=== PATIENT | male | born 1950 | race Caucasian/White ===

== ENCOUNTER 2019-12-23 10:51 | Inpatient (IN) | payer MEDICARE, BC ==
[2019-12-23] MEDS ORDERED: Sodium Chloride 0.9% 10 ML Syringe FLUSH PRN (11:05)
--- NOTE | 2019-12-23 11:42 | EDM.PDOC ---
ED HPI GENERAL MEDICAL PROBLEM - General Chief Complaint: Gastrointestinal Problem Stated Complaint: GI BLEED SENT BY DR SANTANA Time Seen by Provider: 12/23/19 11:05 Source of Information: Reports: Patient History Limitations: Reports: No Limitations - History of Present Illness INITIAL COMMENTS - FREE TEXT/NARRATIVE: Patient is a 69 year old male who presents with c/o bright red bleeding per rectum. The states that the symptoms began last night and he estimates that he has had between 8-10 bowel movements since the start. He states that initially there was some fecal material mixed with the blood but now he is having bowel movements of straight red blood. Describes the amount is moderate. He denies any dizziness upon standing or at other times. States "I do not think I've lost enough blood for that ". He does have a history of lower GI bleed back in 2015. He was admitted to the hospital at that time for a few days until the bleeding stopped. He states that a colonoscopy was not done because he had just had one done approximately 2 years prior to that. He was told that it was likely a diverticular bleed. At that time he was taking Plavix, however he has no longer on that medication. He does take a baby aspirin a day. States he occasionally takes Aleve for his arthritis, however not on a regular basis. His last colonoscopy was in 2013. He denies any abdominal pain, fever, chills, nausea, or vomiting. - Related Data Allergies Allergy/AdvReac Type Severity Reaction Status Date / Time pravastatin Allergy Hives Verified 12/23/19 11:04 Home Meds: Home Meds Allopurinol [Zyloprim] 300 mg PO DAILY 09/26/15 [History] Fexofenadine [Marleni] 180 mg PO DAILY PRN 09/26/15 [History] Lisinopril/Hydrochlorothiazide [Lisinopril-Hctz 20-25 mg Tab] 1 tab PO DAILY 09/26/15 [History] Naproxen Sodium [Aleve] 440 mg PO BID PRN 09/26/15 [History] Omeprazole [Prilosec] 20 mg PO DAILY 09/26/15 [History] Verepamil 240 mg PO DAILY 09/26/15 [History] Aspirin [Halfprin] 81 mg PO DAILY #30 09/28/15 [Rx] Labetalol [Normodyne] 100 mg PO BID 12/23/19 [History] Rosuvastatin Calcium [Crestor] 40 mg PO DAILY 12/23/19 [History] Past Medical History HEENT History: Reports: Impaired Vision Cardiovascular History: Reports: Angina, CAD, High Cholesterol, Hypertension, Stents Respiratory History: Reports: SOB, Other (See Below) Other Respiratory History: seasonal allergies Gastrointestinal History: Reports: Diverticulosis, GERD Genitourinary History: Reports: Prostate Disorder Musculoskeletal History: Reports: Arthritis, Back Pain, Chronic, Other (See Below) Other Musculoskeletal History: burstitis in left shoulder Neurological History: Reports: Migraines Oncologic (Cancer) History: Reports: Other (See Below) Other Oncologic History: right eye Dermatologic History: Reports: Other (See Below) Other Dermatologic History: chorid melanoma right eye - Past Surgical History Cardiovascular Surgical History: Reports: Coronary Artery Stent GI Surgical History: Reports: Hernia, Inguinal, Other (See Below) Other GI Surgeries/Procedures: GI bleed Dermatological Surgical History: Reports: Other (See Below) Social & Family History - Family History Family Medical History: Noncontributory - Tobacco Use Smoking Status *Q: Never Smoker Second Hand Smoke Exposure: No - Caffeine Use Caffeine Use: Reports: Coffee - Recreational Drug Use Recreational Drug Use: No ED ROS GENERAL - Review of Systems Review Of Systems: See Below Constitutional: Reports: No Symptoms. Denies: Fever, Chills, Weakness, Fatigue HEENT: Reports: No Symptoms Respiratory: Reports: No Symptoms. Denies: Shortness of Breath, Cough Cardiovascular: Reports: No Symptoms. Denies: Chest Pain, Lightheadedness Endocrine: Reports: No Symptoms GI/Abdominal: Reports: Bloody Stool. Denies: Abdominal Pain, Black Stool, Melena, Nausea, Vomiting : Reports: No Symptoms Musculoskeletal: Reports: No Symptoms Skin: Reports: No Symptoms Neurological: Reports: No Symptoms. Denies: Dizziness, Headache Psychiatric: Reports: No Symptoms Hematologic/Lymphatic: Reports: No Symptoms Immunologic: Reports: No Symptoms ED EXAM, GI/ABD - Physical Exam Exam: See Below Exam Limited By: No Limitations General Appearance: Alert, WD/WN, No Apparent Distress Respiratory/Chest: No Respiratory Distress, Lungs Clear, Normal Breath Sounds, No Accessory Muscle Use, Chest Non-Tender Cardiovascular: Normal Peripheral Pulses, Regular Rate, Rhythm, No Edema, No Gallop, No JVD, No Murmur, No Rub GI/Abdominal Exam: Normal Bowel Sounds, Soft, Non-Tender, No Organomegaly, No Distention, No Abnormal Bruit, No Mass, Pelvis Stable Rectal (Males) Exam: Normal Exam, Normal Rectal Tone, Bloody Stool (Bright red), Heme + Stool Neurological: Alert, Oriented, CN II-XII Intact, Normal Cognition, Normal Gait, Normal Reflexes, No Motor/Sensory Deficits Psychiatric: Normal Affect, Normal Mood Skin Exam: Warm, Dry, Intact, Normal Color, No Rash Course - Vital Signs Last Recorded V/S: Last Vital Signs Temp 97.5 F 12/23/19 20:12 Pulse 69 12/23/19 21:29 Resp 18 12/23/19 14:53 BP 131/49 L 12/23/19 21:29 Pulse Ox 93 L 12/23/19 20:12 Orthostatic Blood Pressure [ 130/106 Standing] Orthostatic Blood Pressure [ 133/61 Sitting] Orthostatic Blood Pressure [ 136/65 Supine] - Orders/Labs/Meds Orders: Active Orders 24 hr Category Date Time Status Orthostatic Vital Signs [RC] ASDIRECTED Care 12/23/19 11:06 Active Lactated Ringers [Ringers, Lactated] 1,000 ml Med 12/23/19 11:45 Active IV ASDIRECTED Sodium Chloride 0.9% [Saline Flush] Med 12/23/19 11:05 Active 10 ml FLUSH ASDIRECTED PRN Peripheral IV Insertion Adult [OM.PC] Stat Oth 12/23/19 11:05 Ordered Medication Orders Allopurinol (Zyloprim) 300 mg PO DAILY [facility] Lactated Ringer's (Ringers, Lactated) 1,000 mls @ 150 mls/hr IV ASDIRECTED EDISON Last Admin: 12/23/19 19:08 Dose: 100 mls/hr Documented by: Infusion: 12/23/19 18:28 Dose: 150 mls/hr Documented by: Admin: 12/23/19 11:47 Dose: 150 mls/hr Documented by: ABRAN Labetalol HCl (Normodyne) 100 mg PO BID [facility] Last Admin: 12/23/19 21:29 Dose: 100 mg Documented by: RAJWINDER Pantoprazole Sodium (Protonix) 40 mg PO DAILY [facility] Sodium Chloride (Saline Flush) 10 ml FLUSH ASDIRECTED PRN PRN Reason: Keep Vein Open Last Admin: 12/23/19 11:27 Dose: 10 ml Documented by: ABRAN Verapamil HCl (Verelan) 240 mg PO DAILY [facility] Labs: Laboratory Tests 12/23/19 12/23/19 12/23/19 Range/Units 11:33 11:33 11:33 WBC 9.16 H (4.23-9.07) K/mm3 RBC 4.40 L (4.63-6.08) M/mm3 Hgb 13.3 L D (13.7-17.5) gm/dl Hct 41.2 (40.1-51.0) % MCV 93.6 H (79.0-92.2) fl MCH 30.2 (25.7-32.2) pg MCHC 32.3 (32.2-35.5) g/dl RDW Std Deviation 48.5 H (35.1-43.9) fL Plt Count 215 (163-337) K/mm3 MPV 10.6 (9.4-12.3) fl Neut % (Auto) 69.4 H (34.0-67.9) % Lymph % (Auto) 18.7 L (21.8-53.1) % Florence % (Auto) 7.0 (5.3-12.2) % Eos % (Auto) 4.4 (0.8-7.0) Baso % (Auto) 0.4 (0.1-1.2) % Neut # (Auto) 6.36 H (1.78-5.38) K/mm3 Lymph # (Auto) 1.71 (1.32-3.57) K/mm3 Florence # (Auto) 0.64 (0.30-0.82) K/mm3 Eos # (Auto) 0.40 (0.04-0.54) K/mm3 Baso # (Auto) 0.04 (0.01-0.08) K/mm3 Manual Slide Review Normal smear Sodium 142 (136-145) mEq/L Potassium 4.6 (3.5-5.1) mEq/L Chloride 106 (98-107) mEq/L Carbon Dioxide 24 (21-32) mEq/L Anion Gap 16.6 H (5-15) BUN 36 H (7-18) mg/dL Creatinine 1.6 H (0.7-1.3) mg/dL Est Cr Clr Drug Dosing 45.10 mL/min Estimated GFR (MDRD) 43 (>60) mL/min BUN/Creatinine Ratio 22.5 H (14-18) Glucose 132 H (83-115) mg/dL Calcium 10.7 H D (8.5-10.1) mg/dL Magnesium 1.5 L (1.8-2.4) mg/dl Total Bilirubin 0.5 (0.2-1.0) mg/dL AST 26 (15-37) U/L ALT 33 (16-63) U/L Alkaline Phosphatase 86 (46-116) U/L C-Reactive Protein 0.4 (<1.0) mg/dL Total Protein 7.5 (6.4-8.2) g/dl Albumin 4.1 (3.4-5.0) g/dl Globulin 3.4 gm/dL Albumin/Globulin Ratio 1.2 (1-2) Lipase 213 (73-393) U/L Urine Color (Yellow) Urine Appearance (Clear) Urine pH (5.0-8.0) Ur Specific Alston (1.005-1.030) Urine Protein (Negative) Urine Glucose (UA) (Negative) Urine Ketones (Negative) Urine Occult Blood (Negative) Urine Nitrite (Negative) Urine Bilirubin (Negative) Urine Urobilinogen (0.2-1.0) Ur Leukocyte Esterase (Negative) U Hyaline Cast (Auto) (0-5) /lpf Urine RBC (0-5) /hpf Urine WBC (0-5) /hpf Ur Epithelial Cells (0-5) /hpf Urine Bacteria (FEW) /hpf Urine Mucus (FEW) /hpf SARS-CoV-2 RNA (RT-PCR) (NEGATIVE) 12/23/19 12/23/19 Range/Units 12:31 12:55 WBC (4.23-9.07) K/mm3 RBC (4.63-6.08) M/mm3 Hgb (13.7-17.5) gm/dl Hct (40.1-51.0) % MCV (79.0-92.2) fl MCH (25.7-32.2) pg MCHC (32.2-35.5) g/dl RDW Std Deviation (35.1-43.9) fL Plt Count (163-337) K/mm3 MPV (9.4-12.3) fl Neut % (Auto) (34.0-67.9) % Lymph % (Auto) (21.8-53.1) % Florence % (Auto) (5.3-12.2) % Eos % (Auto) (0.8-7.0) Baso % (Auto) (0.1-1.2) % Neut # (Auto) (1.78-5.38) K/mm3 Lymph # (Auto) (1.32-3.57) K/mm3 [place] # (Auto) (0.30-0.82) K/mm3 Eos # (Auto) (0.04-0.54) K/mm3 Baso # (Auto) (0.01-0.08) K/mm3 Manual Slide Review Sodium (136-145) mEq/L Potassium (3.5-5.1) mEq/L Chloride (98-107) mEq/L Carbon Dioxide (21-32) mEq/L Anion Gap (5-15) BUN (7-18) mg/dL Creatinine (0.7-1.3) mg/dL Est Cr Clr Drug Dosing mL/min Estimated GFR (MDRD) (>60) mL/min BUN/Creatinine Ratio (14-18) Glucose (83-115) mg/dL Calcium (8.5-10.1) mg/dL Magnesium (1.8-2.4) mg/dl Total Bilirubin (0.2-1.0) mg/dL AST (15-37) U/L ALT (16-63) U/L Alkaline Phosphatase (46-116) U/L C-Reactive Protein (<1.0) mg/dL Total Protein (6.4-8.2) g/dl Albumin (3.4-5.0) g/dl Globulin gm/dL Albumin/Globulin Ratio (1-2) Lipase (73-393) U/L Urine Color Dark yellow (Yellow) Urine Appearance Clear (Clear) Urine pH 5.5 (5.0-8.0) Ur Specific Alston > or = 1.030 (1.005-1.030) Urine Protein 2+ H (Negative) Urine Glucose (UA) Negative (Negative) Urine Ketones Trace H (Negative) Urine Occult Blood Negative (Negative) Urine Nitrite Negative (Negative) Urine Bilirubin 1+ H (Negative) Urine Urobilinogen 0.2 (0.2-1.0) Ur Leukocyte Esterase Negative (Negative) U Hyaline Cast (Auto) 5-10 H (0-5) /lpf Urine RBC Not seen (0-5) /hpf Urine WBC 0-5 (0-5) /hpf Ur Epithelial Cells Not seen (0-5) /hpf Urine Bacteria Few (FEW) /hpf Urine Mucus Few (FEW) /hpf SARS-CoV-2 RNA (RT-PCR) Negative (NEGATIVE) Meds: Medications Generic Name Dose Route Start Last Admin Trade Name Freq PRN Reason Stop Dose Admin Allopurinol 300 mg 12/24/19 09:00 Zyloprim PO DAILY [facility] Lactated Ringer's 1,000 mls @ 150 mls/hr 12/23/19 11:45 12/23/19 19:08 Ringers, Lactated IV 100 mls/hr ASDIRECTED EDISON Administration Labetalol HCl 100 mg 12/23/19 21:00 12/23/19 21:29 Normodyne PO 100 mg BID [facility] Administration Pantoprazole Sodium 40 mg 12/24/19 09:00 Protonix PO DAILY [facility] Sodium Chloride 10 ml 12/23/19 11:05 12/23/19 11:27 Saline Flush FLUSH 10 ml ASDIRECTED PRN Administration Keep Vein Open Verapamil HCl 240 mg 12/24/19 09:00 Verelan PO DAILY [facility] Discontinued Medications Generic Name Dose Route Start Last Admin Trade Name Freq PRN Reason Stop Dose Admin Magnesium Sulfate 2 gm/ Premix 50 mls @ 25 mls/hr 12/23/19 12:55 12/23/19 13:09 IV 12/23/19 14:54 25 mls/hr ONETIME ONE Administration Polyethylene Glycol/Electrolytes 4,000 ml 12/23/19 18:26 12/23/19 19:09 Golytely PO 12/23/19 18:27 4,000 ml ONETIME ONE Administration - Re-Assessments/Exams Free Text/Narrative Re-Assessment/Exam: 12/23/19 12:55 Hematology was significant for WBC minimally elevated at 9.16, hemoglobin slightly low at 13.3, anion gap slightly elevated at 16.6, BUN 36, creatinine 1.6, magnesium low at 1.5. Spoke with hospitalist, Derrick PANTOJA. Patient will be admitted for lower GI bleed. Will decrease the rate of LR to 100 mils per hour and start 2 g of IV magnesium. Departure - Departure Time of Disposition: 12:55 Disposition: Admitted As Inpatient 64 Condition: Good Clinical Impression: Lower GI bleeding - Discharge Information Sepsis Event Note (ED) - Evaluation Sepsis Screening Result: No Definite Risk - Focused Exam Vital Signs: Vital Signs Temp Pulse Resp BP Pulse Ox 12/23/19 12:43 64 18 103/62 94 L 12/23/19 11:49 73 20 106/58 L 96 12/23/19 11:00 96.8 F L 81 18 111/61 95 - My Orders Last 24 Hours: My Active Orders 12/23/19 11:05 Sodium Chloride 0.9% [Saline Flush] 10 ml FLUSH ASDIRECTED PRN Peripheral IV Insertion Adult [OM.PC] Stat 12/23/19 11:06 Orthostatic Vital Signs [RC] ASDIRECTED 12/23/19 11:45 Lactated Ringers [Ringers, Lactated] 1,000 ml IV ASDIRECTED - Assessment/Plan Last 24 Hours: My Active Orders 12/23/19 11:05 Sodium Chloride 0.9% [Saline Flush] 10 ml FLUSH ASDIRECTED PRN Peripheral IV Insertion Adult [OM.PC] Stat 12/23/19 11:06 Orthostatic Vital Signs [RC] ASDIRECTED 12/23/19 11:45 Lactated Ringers [Ringers, Lactated] 1,000 ml IV ASDIRECTED
[2019-12-23] MEDS: Lactated Ringers 1,000 ML IV SCH ×2 (11:47→19:08)
[2019-12-23] MEDS ORDERED: Magnesium Sulfate/Water 2 GM in Premix Bag 1 BAG IV ONE (12:55)
--- NOTE | 2019-12-23 15:04 | PCM.HP.2 ---
H&P History of Present Illness - General Date of Service: 12/23/19 Admit Problem/Dx: Admission Diagnosis/Problem Admission Diagnosis/Problem GI bleed not requiring more than 4 units of blood in 24 hours, ICU, or surgery Source of Information: Patient, Old Records, Provider, RN, RN Notes Reviewed History Limitations: Reports: No Limitations - History of Present Illness Initial Comments - Free Text/Narative: Gagandeep Brewer is a 69-year-old male who presents to ED on 12/23/2019 after being sent here by his primary care provider, Dr. Ansari, for a GI bleed. Reports has had bright red blood per rectum which started yesterday evening. Reports has had 8-10 bowel movements since the start. He had several bright red bowel movements in the ED as well. Initially states there was formed stool with red streaks but this eventually became gross blood. Reports prior GI bleed in 2015 which resolved without intervention. He states at that time he had had a colonoscopy several weeks prior and nothing was found. He does have a history of diverticulosis and they believe that was the cause of the bleed. He has had no issues since this episode. At that time he was taking Plavix, however this has been discontinued. He takes aspirin daily, 81 mg, and an occasional NSAID. Last colonoscopy was in 2013. Denies any abdominal pain or current infectious symptoms. In the ED temp was 96.8. Pulse 64. Respirations 18. Blood pressure was 103/62. Pulse ox was 94. CBC is grossly unremarkable with a hemoglobin of 13.2 and platelets of 215. Magnesium is low at 1.5 and he is given 2 g in the ED. Creatinine is slightly elevated at 1.6 with a GFR 43. Anion gap is slightly high at 16.6. Lipase is 213. Otherwise electrolytes look good. He started on lactated Ringer's at 150 mils an hour. And this was decreased down to 100 mils per hour before he went to the floor. Stool was heme positive in the ED. COVID-19 screen was negative. He carries a history of angina, CAD, HLD, hypertension, prior stent placement, diverticulosis, GERD, prostate disorder, chronic back pain, arthritis, migraines, choroid melanoma of the right eye, prior GI bleeds. He was never smoker. His PCP is Dr. Ansari. He subsequently admitted to the medical floor for management of his GI bleed. - Related Data Allergies/Adverse Reactions: Allergies Allergy/AdvReac Type Severity Reaction Status Date / Time pravastatin Allergy Hives Verified 12/23/19 11:04 Home Medications: Home Meds Allopurinol [Zyloprim] 300 mg PO DAILY 09/26/15 [History] Fexofenadine [Marleni] 180 mg PO DAILY PRN 09/26/15 [History] Lisinopril/Hydrochlorothiazide [Lisinopril-Hctz 20-25 mg Tab] 1 tab PO DAILY 09/07 [History] Naproxen Sodium [Aleve] 440 mg PO BID 09/26/15 [History] Omeprazole [Prilosec] 20 mg PO DAILY 09/26/15 [History] Verepamil 240 mg PO DAILY 09/26/15 [History] Aspirin [Halfprin] 81 mg PO DAILY #30 09/28/15 [Rx] Labetalol [Normodyne] 100 mg PO BID 12/23/19 [History] Rosuvastatin Calcium [Crestor] 40 mg PO DAILY 12/23/19 [History] Past Medical History HEENT History: Reports: Impaired Vision Cardiovascular History: Reports: Angina, CAD, High Cholesterol, Hypertension, Stents Respiratory History: Reports: SOB, Other (See Below) Other Respiratory History: seasonal allergies Gastrointestinal History: Reports: Diverticulosis, GERD Genitourinary History: Reports: Prostate Disorder Musculoskeletal History: Reports: Arthritis, Back Pain, Chronic, Other (See Below) Other Musculoskeletal History: burstitis in left shoulder Neurological History: Reports: Migraines Oncologic (Cancer) History: Reports: Other (See Below) Other Oncologic History: right eye Dermatologic History: Reports: Other (See Below) Other Dermatologic History: chorid melanoma right eye - Past Surgical History Cardiovascular Surgical History: Reports: Coronary Artery Stent GI Surgical History: Reports: Hernia, Inguinal, Other (See Below) Other GI Surgeries/Procedures: GI bleed Dermatological Surgical History: Reports: Other (See Below) Social & Family History - Family History Family Medical History: Noncontributory - Tobacco Use Smoking Status *Q: Never Smoker Second Hand Smoke Exposure: No - Caffeine Use Caffeine Use: Reports: Coffee - Recreational Drug Use Recreational Drug Use: No H&P Review of Systems - Review of Systems: Review Of Systems: See Below General: Reports: No Symptoms. Denies: Fever, Chills, Malaise, Weakness, Fatigue HEENT: Reports: No Symptoms. Denies: Headaches, Sore Throat Pulmonary: Reports: No Symptoms. Denies: Shortness of Breath, Wheezing, Pleuritic Chest Pain, Cough, Sputum Cardiovascular: Reports: No Symptoms. Denies: Chest Pain, Palpitations, Dyspnea on Exertion, Edema Gastrointestinal: Reports: No Symptoms. Denies: Abdominal Pain, Constipation, Diarrhea, Nausea, Vomiting Genitourinary: Reports: No Symptoms. Denies: Pain Musculoskeletal: Reports: No Symptoms Skin: Reports: No Symptoms. Denies: Cyanosis Psychiatric: Reports: No Symptoms. Denies: Confusion Neurological: Reports: No Symptoms. Denies: Numbness, Tingling, Difficulty Walking, Weakness, Gait Disturbance Hematologic/Lymphatic: Reports: No Symptoms Immunologic: Reports: No Symptoms Exam - Exam Exam: See Below - Vital Signs Vital Signs: Last Vital Signs Temp 96.8 F L 12/23/19 11:00 Pulse 64 12/23/19 12:43 Resp 18 12/23/19 12:43 BP 103/62 12/23/19 12:43 Pulse Ox 94 L 12/23/19 12:43 Orthostatic Blood Pressure [ 130/106 Standing] Orthostatic Blood Pressure [ 133/61 Sitting] Orthostatic Blood Pressure [ 136/65 Supine] Weight: 230 lb - Exam Quality Assessment: DVT Prophylaxis. No: Supplemental Oxygen General: Alert, Oriented, Cooperative. No: Mild Distress HEENT: Conjunctiva Clear, EACs Clear, Hearing Intact, Mucosa Moist & [place], Nares Patent, Posterior Pharynx Clear Neck: Supple, Trachea Midline Lungs: Clear to Auscultation, Normal Respiratory Effort Cardiovascular: Regular Rate, Regular Rhythm GI/Abdominal Exam: Normal Bowel Sounds, Soft, Non-Tender, No Distention (Male) Exam: Deferred Rectal (Males) Exam: Deferred Back Exam: Normal Inspection, Full Range of Motion Extremities: Normal Inspection, Normal Range of Motion, Non-Tender, No Pedal Edema, Normal Capillary Refill Peripheral Pulses: 2+: Radial (L), Radial (R), Dorsalis Pedis (L), Dorsalis Pedis (R) Skin: Warm, Dry, Intact Neurological: Cranial Nerves Intact (Grossly ) Neuro Extensive - Mental Status: Alert, Oriented x3, Normal Mood/Affect, Normal Cognition - Patient Data Lab Results Last 24 hrs: Laboratory Results - last 24 hr 12/23/19 12/23/19 12/23/19 Range/Units 11:33 11:33 11:33 WBC 9.16 H (4.23-9.07) K/mm3 RBC 4.40 L (4.63-6.08) M/mm3 Hgb 13.3 L D (13.7-17.5) gm/dl Hct 41.2 (40.1-51.0) % MCV 93.6 H (79.0-92.2) fl MCH 30.2 (25.7-32.2) pg MCHC 32.3 (32.2-35.5) g/dl RDW Std Deviation 48.5 H (35.1-43.9) fL Plt Count 215 (163-337) K/mm3 MPV 10.6 (9.4-12.3) fl Neut % (Auto) 69.4 H (34.0-67.9) % Lymph % (Auto) 18.7 L (21.8-53.1) % [place] % (Auto) 7.0 (5.3-12.2) % Eos % (Auto) 4.4 (0.8-7.0) Baso % (Auto) 0.4 (0.1-1.2) % Neut # (Auto) 6.36 H (1.78-5.38) K/mm3 Lymph # (Auto) 1.71 (1.32-3.57) K/mm3 [place] # (Auto) 0.64 (0.30-0.82) K/mm3 Eos # (Auto) 0.40 (0.04-0.54) K/mm3 Baso # (Auto) 0.04 (0.01-0.08) K/mm3 Manual Slide Review Normal smear Sodium 142 (136-145) mEq/L Potassium 4.6 (3.5-5.1) mEq/L Chloride 106 (98-107) mEq/L Carbon Dioxide 24 (21-32) mEq/L Anion Gap 16.6 H (5-15) BUN 36 H (7-18) mg/dL Creatinine 1.6 H (0.7-1.3) mg/dL Est Cr Clr Drug Dosing 45.10 mL/min Estimated GFR (MDRD) 43 (>60) mL/min BUN/Creatinine Ratio 22.5 H (14-18) Glucose 132 H (83-115) mg/dL Calcium 10.7 H D (8.5-10.1) mg/dL Magnesium 1.5 L (1.8-2.4) mg/dl Total Bilirubin 0.5 (0.2-1.0) mg/dL AST 26 (15-37) U/L ALT 33 (16-63) U/L Alkaline Phosphatase 86 (46-116) U/L C-Reactive Protein 0.4 (<1.0) mg/dL Total Protein 7.5 (6.4-8.2) g/dl Albumin 4.1 (3.4-5.0) g/dl Globulin 3.4 gm/dL Albumin/Globulin Ratio 1.2 (1-2) Lipase 213 (73-393) U/L Urine Color (Yellow) Urine Appearance (Clear) Urine pH (5.0-8.0) Ur Specific [place] (1.005-1.030) Urine Protein (Negative) Urine Glucose (UA) (Negative) Urine Ketones (Negative) Urine Occult Blood (Negative) Urine Nitrite (Negative) Urine Bilirubin (Negative) Urine Urobilinogen (0.2-1.0) Ur Leukocyte Esterase (Negative) U Hyaline Cast (Auto) (0-5) /lpf Urine RBC (0-5) /hpf Urine WBC (0-5) /hpf Ur Epithelial Cells (0-5) /hpf Urine Bacteria (FEW) /hpf Urine Mucus (FEW) /hpf SARS-CoV-2 RNA (RT-PCR) (NEGATIVE) 12/23/19 12/23/19 Range/Units 12:31 12:55 WBC (4.23-9.07) K/mm3 RBC (4.63-6.08) M/mm3 Hgb (13.7-17.5) gm/dl Hct (40.1-51.0) % MCV (79.0-92.2) fl MCH (25.7-32.2) pg MCHC (32.2-35.5) g/dl RDW Std Deviation (35.1-43.9) fL Plt Count (163-337) K/mm3 MPV (9.4-12.3) fl Neut % (Auto) (34.0-67.9) % Lymph % (Auto) (21.8-53.1) % [place] % (Auto) (5.3-12.2) % Eos % (Auto) (0.8-7.0) Baso % (Auto) (0.1-1.2) % Neut # (Auto) (1.78-5.38) K/mm3 Lymph # (Auto) (1.32-3.57) K/mm3 [place] # (Auto) (0.30-0.82) K/mm3 Eos # (Auto) (0.04-0.54) K/mm3 Baso # (Auto) (0.01-0.08) K/mm3 Manual Slide Review Sodium (136-145) mEq/L Potassium (3.5-5.1) mEq/L Chloride (98-107) mEq/L Carbon Dioxide (21-32) mEq/L Anion Gap (5-15) BUN (7-18) mg/dL Creatinine (0.7-1.3) mg/dL Est Cr Clr Drug Dosing mL/min Estimated GFR (MDRD) (>60) mL/min BUN/Creatinine Ratio (14-18) Glucose (83-115) mg/dL Calcium (8.5-10.1) mg/dL Magnesium (1.8-2.4) mg/dl Total Bilirubin (0.2-1.0) mg/dL AST (15-37) U/L ALT (16-63) U/L Alkaline Phosphatase (46-116) U/L C-Reactive Protein (<1.0) mg/dL Total Protein (6.4-8.2) g/dl Albumin (3.4-5.0) g/dl Globulin gm/dL Albumin/Globulin Ratio (1-2) Lipase (73-393) U/L Urine Color Dark yellow (Yellow) Urine Appearance Clear (Clear) Urine pH 5.5 (5.0-8.0) Ur Specific [place] > or = 1.030 (1.005-1.030) Urine Protein 2+ H (Negative) Urine Glucose (UA) Negative (Negative) Urine Ketones Trace H (Negative) Urine Occult Blood Negative (Negative) Urine Nitrite Negative (Negative) Urine Bilirubin 1+ H (Negative) Urine Urobilinogen 0.2 (0.2-1.0) Ur Leukocyte Esterase Negative (Negative) U Hyaline Cast (Auto) 5-10 H (0-5) /lpf Urine RBC Not seen (0-5) /hpf Urine WBC 0-5 (0-5) /hpf Ur Epithelial Cells Not seen (0-5) /hpf Urine Bacteria Few (FEW) /hpf Urine Mucus Few (FEW) /hpf SARS-CoV-2 RNA (RT-PCR) Negative (NEGATIVE) Result Diagrams: 12/23/19 11:33 12/23/19 11:33 Sepsis Event Note - Evaluation Sepsis Screening Result: No Definite Risk - Focused Exam Vital Signs: Vital Signs Temp Pulse Resp BP Pulse Ox 12/23/19 12:43 64 18 103/62 94 L 12/23/19 11:49 73 20 106/58 L 96 12/23/19 11:00 96.8 F L 81 18 111/61 95 Date Exam was Performed: 12/23/19 Time Exam was Performed: 16:15 - Problem List (1) Lower GI bleed SNOMED Code(s): 67421556 ICD Code: K92.2 - GASTROINTESTINAL HEMORRHAGE, UNSPECIFIED Status: Acute Priority: High Current Visit: Yes (2) History of GI bleed SNOMED Code(s): 142101965 ICD Code: Z87.19 - PERSONAL HISTORY OF OTHER DISEASES OF THE DIGESTIVE SYSTEM Status: Chronic Priority: Medium Current Visit: Yes (3) Angina pectoris SNOMED Code(s): 064559345 ICD Code: I20.9 - ANGINA PECTORIS, UNSPECIFIED Status: Chronic Priority: Medium Current Visit: No (4) HLD (hyperlipidemia) SNOMED Code(s): 35107982 ICD Code: E78.5 - HYPERLIPIDEMIA, UNSPECIFIED Status: Chronic Priority: Low Current Visit: No Qualifiers: Hyperlipidemia type: unspecified Qualified Code(s): E78.5 - Hyperlipidemia, unspecified (5) CAD (coronary artery disease) SNOMED Code(s): 95410200 ICD Code: I25.10 - ATHSCL HEART DISEASE OF [place] CORONARY ARTERY W/O ANG PCTRS Status: Chronic Priority: Medium Current Visit: No Qualifiers: Coronary Disease-Associated Artery/Lesion type: unspecified vessel or lesion type [place] vs. transplanted heart: [place] heart Associated angina: with stable angina Qualified Code(s): I25.118 - Atherosclerotic heart disease of [place] coronary artery with other forms of angina pectoris (6) HTN (hypertension) SNOMED Code(s): 15314824 ICD Code: I10 - ESSENTIAL (PRIMARY) HYPERTENSION Status: Chronic Priority: Medium Current Visit: No Qualifiers: Hypertension type: unspecified Qualified Code(s): I10 - Essential (primary) hypertension (7) History of heart artery stent SNOMED Code(s): 275066467, 140412691 ICD Code: Z95.5 - PRESENCE OF CORONARY ANGIOPLASTY IMPLANT AND GRAFT Status: Chronic Priority: Medium Current Visit: Yes (8) Diverticulosis SNOMED Code(s): 561721819 ICD Code: K57.90 - DVRTCLOS OF INTEST, PART UNSP, W/O PERF OR ABSCESS W/O BLEED Status: Chronic Priority: High Current Visit: Yes (9) GERD (gastroesophageal reflux disease) SNOMED Code(s): 000589182 ICD Code: K21.9 - GASTRO-ESOPHAGEAL REFLUX DISEASE WITHOUT ESOPHAGITIS Status: Chronic Priority: Medium Current Visit: Yes Qualifiers: Esophagitis presence: esophagitis presence not specified Qualified Code(s): K21.9 - Gastro-esophageal reflux disease without esophagitis (10) Prostate disorder SNOMED Code(s): 94157138 ICD Code: N42.9 - DISORDER OF PROSTATE, UNSPECIFIED Status: Chronic Priority: Low Current Visit: No (11) Arthritis SNOMED Code(s): 7933854 ICD Code: M19.90 - UNSPECIFIED OSTEOARTHRITIS, UNSPECIFIED SITE Status: Chronic Priority: Low Current Visit: No (12) Chronic back pain SNOMED Code(s): 783022058 ICD Code: M54.9 - DORSALGIA, UNSPECIFIED; G89.29 - OTHER CHRONIC PAIN Status: Chronic Priority: Low Current Visit: No Qualifiers: Back pain location: back pain in unspecified location Back pain laterality: unspecified Qualified Code(s): M54.9 - Dorsalgia, unspecified; G89.29 - Other chronic pain (13) Migraines SNOMED Code(s): 76230656 ICD Code: G43.909 - MIGRAINE, UNSP, NOT INTRACTABLE, WITHOUT STATUS MIGRAINOSUS Status: Chronic Priority: Low Current Visit: No Qualifiers: Migraine type: unspecified Status migrainosus presence: without status migrainosus Intractability: not intractable Qualified Code(s): G43.909 - Migraine, unspecified, not intractable, without status migrainosus (14) Choroid melanoma of right eye SNOMED Code(s): 6386819093867291 ICD Code: C69.31 - MALIGNANT NEOPLASM OF RIGHT CHOROID Status: Chronic Priority: Low Current Visit: No (15) Hypomagnesemia SNOMED Code(s): 057245826 ICD Code: E83.42 - HYPOMAGNESEMIA Status: Acute Current Visit: Yes Problem List Initiated/Reviewed/Updated: Yes Orders Last 24hrs: Active Orders 24 hr Category Date Time Status Admission Status [Patient Status] [ADT] Routine ADT 12/23/19 14:18 Active Orthostatic Vital Signs [RC] ASDIRECTED Care 12/23/19 11:06 Active Peripheral IV Care [RC] . DIRECTED Care 12/23/19 11:05 Active Lactated Ringers [Ringers, Lactated] 1,000 ml Med 12/23/19 11:45 Active IV ASDIRECTED Sodium Chloride 0.9% [Saline Flush] Med 12/23/19 11:05 Active 10 ml FLUSH ASDIRECTED PRN Peripheral IV Insertion Adult [OM.PC] Stat Oth 12/23/19 11:05 Ordered Medication Orders Lactated Ringer's (Ringers, Lactated) 1,000 mls @ 150 mls/hr IV ASDIRECTED EDISON Last Admin: 12/23/19 11:47 Dose: 150 mls/hr Documented by: ABRAN Sodium Chloride (Saline Flush) 10 ml FLUSH ASDIRECTED PRN PRN Reason: Keep Vein Open Last Admin: 12/23/19 11:27 Dose: 10 ml Documented by: ABRAN Assessment/Plan Comment:: Lower GI bleed History of GI bleed Diverticulosis GERD (gastroesophageal reflux disease) Reports BRBPR that began on the evening of 12/22/19 Reports started with blood streaks on stool and changed to gross blood Prior GI bleed in 2016 when on plavix - has since stoppled - this resolved without intervention Last colonoscopy was 2013 Reports 8-10 grossly bloody BMs at home and several in ED Heme positive stool in ED On home omeprazole for GERD Orthostatic vital signs negative in ED Hgb13.3 in ED PLAN - Clear liquid diet - Repeat H/H Q6Hr - IV fluids as directed - Hold home aspirin - Continue home omeprazole - Consult general surgery - Dr. Leone - Monitor labs Hypomagnesemia Magnesium 1.5 in ED Given 2 grams PLAN - Monitor AM labs - Check phosphorous in AM Angina pectoris HLD (hyperlipidemia) CAD (coronary artery disease) HTN (hypertension) History of heart artery stent On home Aspirin, Crestor, labetalol, verapamil, lisinopril/HCTZ PLAN - Hold home ASA as above for GI bleed - Continue home medications as directed - Caution with BP medications Prostate disorder Arthritis Chronic back pain Migraines Choroid melanoma of right eye No current concerns Plan - Monitor DVT Prophylaxis: SCDs. Pharmacological intervention contraindicated due to GI bleed GI Prophylaxis: Home omeprazole PCP: Dr. Ansari Disposition: Patient will be admitted to the medical floor for monitoring and management of his GI bleed. Surgical consultation ordered. - Mortality Measure Prognosis:: Good
[2019-12-23] MEDS ORDERED: Polyethylene Glycol/Electrolytes 4,000 ML Bottle PO ONE (18:26)
--- NOTE | 2019-12-23 20:19 | PCM.CONS ---
H&P History of Present Illness - General Date of Service: 12/23/19 Admit Problem/Dx: Admission Diagnosis/Problem Admission Diagnosis/Problem GI bleed not requiring more than 4 units of blood in 24 hours, ICU, or surgery Source of Information: Patient, Provider History Limitations: Reports: No Limitations - History of Present Illness Initial Comments - Free Text/Narative: Mr. Brewer is a 69 yo man who presented to the emergency room this morning after developing significant bright red bleeding per rectum last night. This has happened to him before, about 4 years ago. At the time, he was taking plavix for drug-eluting cardiac stents, and he had had a colonoscopy only a few years prior that showed no disease aside from diverticulosis. The bleeding was presumed to be diverticular, and with monitoring and withholding antiplatelet therapy, the bleeding was self-limited. He has done fine since, and has not had a colonoscopy since the one about 6 years ago. He currently only takes a baby aspirin daily for his cardiac stents. He reports no pain. He reports urgency, and when he goes to the toilet, copious bright red blood comes out. This has happened several times since presentation to the ER. His Hgb has gone from about 13 g/dL to about 10.5 g/dL in 6 hours. Medical history is significant for minor hemorrhoids, which have never required surgical treatment and have not been bothering him for years. He has melanoma of the scalp, treated, and more recently choroid melanoma, right eye, treated with brachytherapy at [facility]. Workup, including imaging and lab work, showed no evidence of GI lesion or liver disease. He has no family history of colon cancer. He does not drink or smoke. He has well controlled HTN, and surgical history includes inguinal hernia repair, orchipexy/unilateral orchiectomy, some orthopedic surgery, excision of melanoma, cataract surgery. - Related Data Allergies/Adverse Reactions: Allergies Allergy/AdvReac Type Severity Reaction Status Date / Time pravastatin Allergy Hives Verified 12/23/19 11:04 Home Medications: Home Meds Allopurinol [Zyloprim] 300 mg PO DAILY 09/26/15 [History] Fexofenadine [Marleni] 180 mg PO DAILY PRN 09/26/15 [History] Lisinopril/Hydrochlorothiazide [Lisinopril-Hctz 20-25 mg Tab] 1 tab PO DAILY [History] Naproxen Sodium [Aleve] 440 mg PO BID PRN 09/26/15 [History] Omeprazole [Prilosec] 20 mg PO DAILY 09/26/15 [History] Verepamil 240 mg PO DAILY 09/26/15 [History] Aspirin [Halfprin] 81 mg PO DAILY #30 09/28/15 [Rx] Labetalol [Normodyne] 100 mg PO BID 12/23/19 [History] Rosuvastatin Calcium [Crestor] 40 mg PO DAILY 12/23/19 [History] Past Medical History HEENT History: Reports: Impaired Vision Cardiovascular History: Reports: Angina, CAD, High Cholesterol, Hypertension, Stents Respiratory History: Reports: SOB, Other (See Below) Other Respiratory History: seasonal allergies Gastrointestinal History: Reports: Diverticulosis, GERD Genitourinary History: Reports: Prostate Disorder Musculoskeletal History: Reports: Arthritis, Back Pain, Chronic, Other (See Below) Other Musculoskeletal History: burstitis in left shoulder Neurological History: Reports: Migraines Oncologic (Cancer) History: Reports: Other (See Below) Other Oncologic History: right eye Dermatologic History: Reports: Other (See Below) Other Dermatologic History: chorid melanoma right eye - Past Surgical History Cardiovascular Surgical History: Reports: Coronary Artery Stent GI Surgical History: Reports: Hernia, Inguinal, Other (See Below) Other GI Surgeries/Procedures: GI bleed Dermatological Surgical History: Reports: Other (See Below) Social & Family History - Family History Family Medical History: Noncontributory - Tobacco Use Smoking Status *Q: Never Smoker Second Hand Smoke Exposure: No - Caffeine Use Caffeine Use: Reports: Coffee Caffeine Use Comment: Drinks Coke 2-3x/week - Recreational Drug Use Recreational Drug Use: No H&P Review of Systems - Review of Systems: Review Of Systems: See Below General: Reports: No Symptoms HEENT: Reports: No Symptoms Pulmonary: Reports: No Symptoms Cardiovascular: Reports: No Symptoms Gastrointestinal: Reports: Hematochezia Musculoskeletal: Reports: No Symptoms Skin: Reports: No Symptoms Hematologic/Lymphatic: Reports: Anemia, Easy Bleeding Exam - Exam Exam: See Below - Vital Signs Vital Signs: Last Vital Signs Temp 36.0 C L 12/23/19 11:00 Pulse 64 12/23/19 12:43 Resp 18 12/23/19 12:43 BP 103/62 12/23/19 12:43 Pulse Ox 94 L 12/23/19 12:43 Orthostatic Blood Pressure [ 130/106 Standing] Orthostatic Blood Pressure [ 133/61 Sitting] Orthostatic Blood Pressure [ 136/65 Supine] Weight: 104.326 kg - Exam General: Alert, Oriented, Cooperative HEENT: Conjunctiva Clear, Other (poor dentition) Neck: Trachea Midline Lungs: Normal Respiratory Effort Cardiovascular: Regular Rate GI/Abdominal Exam: Soft Rectal (Males) Exam: Other (dried red blood on underwear. sphincter spasm. No tenderness, no palpable mass, no gross blood) Extremities: Normal Inspection Psychiatric: Alert, Normal Affect, Normal Mood - Patient Data Lab Results Last 24 hrs: Laboratory Results - last 24 hr 12/23/19 12/23/19 12/23/19 Range/Units 11:33 11:33 11:33 WBC 9.16 H (4.23-9.07) K/mm3 RBC 4.40 L (4.63-6.08) M/mm3 Hgb 13.3 L D (13.7-17.5) gm/dl Hct 41.2 (40.1-51.0) % MCV 93.6 H (79.0-92.2) fl MCH 30.2 (25.7-32.2) pg MCHC 32.3 (32.2-35.5) g/dl RDW Std Deviation 48.5 H (35.1-43.9) fL Plt Count 215 (163-337) K/mm3 MPV 10.6 (9.4-12.3) fl Neut % (Auto) 69.4 H (34.0-67.9) % Lymph % (Auto) 18.7 L (21.8-53.1) % Stewart % (Auto) 7.0 (5.3-12.2) % Eos % (Auto) 4.4 (0.8-7.0) Baso % (Auto) 0.4 (0.1-1.2) % Neut # (Auto) 6.36 H (1.78-5.38) K/mm3 Lymph # (Auto) 1.71 (1.32-3.57) K/mm3 Stewart # (Auto) 0.64 (0.30-0.82) K/mm3 Eos # (Auto) 0.40 (0.04-0.54) K/mm3 Baso # (Auto) 0.04 (0.01-0.08) K/mm3 Manual Slide Review Normal smear PT (9.7-12.0) SECONDS INR APTT (22-31) SECONDS Sodium 142 (136-145) mEq/L Potassium 4.6 (3.5-5.1) mEq/L Chloride 106 (98-107) mEq/L Carbon Dioxide 24 (21-32) mEq/L Anion Gap 16.6 H (5-15) BUN 36 H (7-18) mg/dL Creatinine 1.6 H (0.7-1.3) mg/dL Est Cr Clr Drug Dosing 45.10 mL/min Estimated GFR (MDRD) 43 (>60) mL/min BUN/Creatinine Ratio 22.5 H (14-18) Glucose 132 H (83-115) mg/dL Calcium 10.7 H D (8.5-10.1) mg/dL Magnesium 1.5 L (1.8-2.4) mg/dl Total Bilirubin 0.5 (0.2-1.0) mg/dL AST 26 (15-37) U/L ALT 33 (16-63) U/L Alkaline Phosphatase 86 (46-116) U/L C-Reactive Protein 0.4 (<1.0) mg/dL Total Protein 7.5 (6.4-8.2) g/dl Albumin 4.1 (3.4-5.0) g/dl Globulin 3.4 gm/dL Albumin/Globulin Ratio 1.2 (1-2) Lipase 213 (73-393) U/L Urine Color (Yellow) Urine Appearance (Clear) Urine pH (5.0-8.0) Ur Specific [place] (1.005-1.030) Urine Protein (Negative) Urine Glucose (UA) (Negative) Urine Ketones (Negative) Urine Occult Blood (Negative) Urine Nitrite (Negative) Urine Bilirubin (Negative) Urine Urobilinogen (0.2-1.0) Ur Leukocyte Esterase (Negative) U Hyaline Cast (Auto) (0-5) /lpf Urine RBC (0-5) /hpf Urine WBC (0-5) /hpf Ur Epithelial Cells (0-5) /hpf Urine Bacteria (FEW) /hpf Urine Mucus (FEW) /hpf SARS-CoV-2 RNA (RT-PCR) (NEGATIVE) 12/23/19 12/23/19 12/23/19 Range/Units 12:31 12:55 14:59 WBC (4.23-9.07) K/mm3 RBC (4.63-6.08) M/mm3 Hgb (13.7-17.5) gm/dl Hct (40.1-51.0) % MCV (79.0-92.2) fl MCH (25.7-32.2) pg MCHC (32.2-35.5) g/dl RDW Std Deviation (35.1-43.9) fL Plt Count (163-337) K/mm3 MPV (9.4-12.3) fl Neut % (Auto) (34.0-67.9) % Lymph % (Auto) (21.8-53.1) % Stewart % (Auto) (5.3-12.2) % Eos % (Auto) (0.8-7.0) Baso % (Auto) (0.1-1.2) % Neut # (Auto) (1.78-5.38) K/mm3 Lymph # (Auto) (1.32-3.57) K/mm3 Stewart # (Auto) (0.30-0.82) K/mm3 Eos # (Auto) (0.04-0.54) K/mm3 Baso # (Auto) (0.01-0.08) K/mm3 Manual Slide Review PT 11.3 (9.7-12.0) SECONDS INR 1.04 APTT 27 (22-31) SECONDS Sodium (136-145) mEq/L Potassium (3.5-5.1) mEq/L Chloride (98-107) mEq/L Carbon Dioxide (21-32) mEq/L Anion Gap (5-15) BUN (7-18) mg/dL Creatinine (0.7-1.3) mg/dL Est Cr Clr Drug Dosing mL/min Estimated GFR (MDRD) (>60) mL/min BUN/Creatinine Ratio (14-18) Glucose (83-115) mg/dL Calcium (8.5-10.1) mg/dL Magnesium (1.8-2.4) mg/dl Total Bilirubin (0.2-1.0) mg/dL AST (15-37) U/L ALT (16-63) U/L Alkaline Phosphatase (46-116) U/L C-Reactive Protein (<1.0) mg/dL Total Protein (6.4-8.2) g/dl Albumin (3.4-5.0) g/dl Globulin gm/dL Albumin/Globulin Ratio (1-2) Lipase (73-393) U/L Urine Color Dark yellow (Yellow) Urine Appearance Clear (Clear) Urine pH 5.5 (5.0-8.0) Ur Specific [place] > or = 1.030 (1.005-1.030) Urine Protein 2+ H (Negative) Urine Glucose (UA) Negative (Negative) Urine Ketones Trace H (Negative) Urine Occult Blood Negative (Negative) Urine Nitrite Negative (Negative) Urine Bilirubin 1+ H (Negative) Urine Urobilinogen 0.2 (0.2-1.0) Ur Leukocyte Esterase Negative (Negative) U Hyaline Cast (Auto) 5-10 H (0-5) /lpf Urine RBC Not seen (0-5) /hpf Urine WBC 0-5 (0-5) /hpf Ur Epithelial Cells Not seen (0-5) /hpf Urine Bacteria Few (FEW) /hpf Urine Mucus Few (FEW) /hpf SARS-CoV-2 RNA (RT-PCR) Negative (NEGATIVE) 12/23/19 Range/Units 17:56 WBC (4.23-9.07) K/mm3 RBC (4.63-6.08) M/mm3 Hgb 10.7 L D (13.7-17.5) gm/dl Hct 34.0 L (40.1-51.0) % MCV (79.0-92.2) fl MCH (25.7-32.2) pg MCHC (32.2-35.5) g/dl RDW Std Deviation (35.1-43.9) fL Plt Count (163-337) K/mm3 MPV (9.4-12.3) fl Neut % (Auto) (34.0-67.9) % Lymph % (Auto) (21.8-53.1) % Stewart % (Auto) (5.3-12.2) % Eos % (Auto) (0.8-7.0) Baso % (Auto) (0.1-1.2) % Neut # (Auto) (1.78-5.38) K/mm3 Lymph # (Auto) (1.32-3.57) K/mm3 Stewart # (Auto) (0.30-0.82) K/mm3 Eos # (Auto) (0.04-0.54) K/mm3 Baso # (Auto) (0.01-0.08) K/mm3 Manual Slide Review PT (9.7-12.0) SECONDS INR APTT (22-31) SECONDS Sodium (136-145) mEq/L Potassium (3.5-5.1) mEq/L Chloride (98-107) mEq/L Carbon Dioxide (21-32) mEq/L Anion Gap (5-15) BUN (7-18) mg/dL Creatinine (0.7-1.3) mg/dL Est Cr Clr Drug Dosing mL/min Estimated GFR (MDRD) (>60) mL/min BUN/Creatinine Ratio (14-18) Glucose (83-115) mg/dL Calcium (8.5-10.1) mg/dL Magnesium (1.8-2.4) mg/dl Total Bilirubin (0.2-1.0) mg/dL AST (15-37) U/L ALT (16-63) U/L Alkaline Phosphatase (46-116) U/L C-Reactive Protein (<1.0) mg/dL Total Protein (6.4-8.2) g/dl Albumin (3.4-5.0) g/dl Globulin gm/dL Albumin/Globulin Ratio (1-2) Lipase (73-393) U/L Urine Color (Yellow) Urine Appearance (Clear) Urine pH (5.0-8.0) Ur Specific [place] (1.005-1.030) Urine Protein (Negative) Urine Glucose (UA) (Negative) Urine Ketones (Negative) Urine Occult Blood (Negative) Urine Nitrite (Negative) Urine Bilirubin (Negative) Urine Urobilinogen (0.2-1.0) Ur Leukocyte Esterase (Negative) U Hyaline Cast (Auto) (0-5) /lpf Urine RBC (0-5) /hpf Urine WBC (0-5) /hpf Ur Epithelial Cells (0-5) /hpf Urine Bacteria (FEW) /hpf Urine Mucus (FEW) /hpf SARS-CoV-2 RNA (RT-PCR) (NEGATIVE) Result Diagrams: 12/23/19 17:56 12/23/19 11:33 Sepsis Event Note - Evaluation Sepsis Screening Result: No Definite Risk - Focused Exam Vital Signs: Vital Signs Temp Pulse Resp BP Pulse Ox 12/23/19 12:43 64 18 103/62 94 L 12/23/19 11:49 73 20 106/58 L 96 12/23/19 11:00 36.0 C L 81 18 111/61 95 Date Exam was Performed: 12/23/19 Time Exam was Performed: 20:13 *Q Meaningful Use (ADM) - VTE Risk Assess *Q Each Risk Factor Represents 2 Points: Age 60 - 74 Years Total Score 2 Point Risk Factors: 2 Consult PN Assessment/Plan Procedures: Procedures ASSAY OF MAGNESIUM (09/26/15) C-REACTIVE PROTEIN (09/26/15) CARDIOVASCULAR STRESS TEST (08/05/14) COMPLETE CBC W/AUTO DIFF WBC (09/26/15) COMPREHEN METABOLIC PANEL (09/26/15) HEMOGLOBIN (09/26/15) HT MUSCLE IMAGE SPECT MULT (08/05/14) IMMUNOHISTO ANTB 1ST STAIN (08/17/15) METABOLIC PANEL TOTAL CA (09/26/15) MICROSLIDE CONSULTATION (08/17/15) RBC SED RATE AUTOMATED (09/26/15) ROUTINE VENIPUNCTURE (09/26/15) TISSUE EXAM BY PATHOLOGIST (08/17/15) X-RAY EXAM OF FINGER(S) (11/06/17) Problem List Initiated/Reviewed/Updated: Yes My Orders Last 24 Hours: My Active Orders 12/23/19 20:12 Schedule Procedure [COMM] Routine Plan: Significant painless bright red blood per rectum, most likely diverticular bleed from history and exam findings. Currently well-appearing. This bleeding is often self-limited; agree with current fluid resuscitation and monitoring in house for the time being. Given that it has been years since last colonoscopy, I think it is reasonable to plan for diagnostic colonoscopy tomorrow, especially if Hgb continues to drop. If active hemorrhage is encountered, endoscopy may pro vide opportunity for successful interventional treatment. Patient is currently taking mechanical bowel prep. Requesting Provider: Booke Date Consult Requested: 12/23/19 Reason for Consult: lower GI bleed Patient History Reviewed: Yes Admission H&P Reviewed: Yes Notified Requestor: Yes
[2019-12-23] MEDS: Labetalol 100 MG Tab PO SCH (21:29)
[2019-12-24] MEDS: Lactated Ringers 1,000 ML IV SCH (05:43)
--- NOTE | 2019-12-24 08:36 | PCM.PREANE ---
Preanesthetic Assessment - Procedure Proposed Procedure: Diagnostic Colonoscopy for Anemia (GI Bleed) - Anesthesia/Transfusion/Family Hx Anesthesia History: Prior Anesthesia Without Reaction Family History of Anesthesia Reaction: No Transfusion History: Prior Transfusion Without Reaction Intubation History: Unknown - Review of Systems General: No Symptoms Pulmonary: No Symptoms Cardiovascular: No Symptoms (HTN, elevated cholesterol, CAD- stents placed in 2014/ recently seen by supervisor [employer] in October of 2019 with good report.), Chest Pain (History of with stent placement:), Lightheadedness (postional changes with lightheadedness/not too often.) Gastrointestinal: No Symptoms (GERD-on omeprazole) Neurological: No Symptoms (chronic lower back pain noted: 0/10) Other: Reports: None (Decreased kidney function with GFR=43, and elevated Cr and BUN.), Sinus Problem (seasonal allergies) - Physical Assessment NPO Status Date: 12/23/19 NPO Status Time: 19:00 Vital Signs: Last Vital Signs Temp 36.3 C 12/24/19 03:02 Pulse 85 12/24/19 03:02 Resp 16 12/24/19 03:02 BP 123/57 L 12/24/19 03:02 Pulse Ox 94 L 12/24/19 03:02 Orthostatic Blood Pressure [ 130/106 Standing] Orthostatic Blood Pressure [ 133/61 Sitting] Orthostatic Blood Pressure [ 136/65 Supine] Height: 1.8 m Weight: 100.607 kg ASA Class: 3E Mental Status: Alert & Oriented x3 Airway Class: Mallampati = 2 Dentition: Reports: Normal Dentition, Missing Tooth/Teeth, Caries Thyro-Mental Finger Breadths: 3 Mouth Opening Finger Breadths: 3 ROM/Head Extension: Full Lungs: Clear to Auscultation, Normal Respiratory Effort Cardiovascular: Regular Rate, Regular Rhythm, Murmurs - Lab Values: Laboratory Last Values WBC 10.46 K/mm3 (4.23-9.07) H 12/24/19 07:50 RBC 3.21 M/mm3 (4.63-6.08) L 12/24/19 07:50 Hgb 9.6 gm/dl (13.7-17.5) L 12/24/19 07:50 Hct 30.2 % (40.1-51.0) L 12/24/19 07:50 MCV 94.1 fl (79.0-92.2) H 12/24/19 07:50 MCH 29.9 pg (25.7-32.2) 12/24/19 07:50 MCHC 31.8 g/dl (32.2-35.5) L 12/24/19 07:50 RDW Std Deviation 47.8 fL (35.1-43.9) H 12/24/19 07:50 Plt Count 151 K/mm3 (163-337) L 12/24/19 07:50 MPV 10.7 fl (9.4-12.3) 12/24/19 07:50 Neut % (Auto) 78.1 % (34.0-67.9) H 12/24/19 07:50 Lymph % (Auto) 13.2 % (21.8-53.1) L 12/24/19 07:50 Simpson % (Auto) 7.2 % (5.3-12.2) 12/24/19 07:50 Eos % (Auto) 1.0 (0.8-7.0) 12/24/19 07:50 Baso % (Auto) 0.2 % (0.1-1.2) 12/24/19 07:50 Neut # (Auto) 8.18 K/mm3 (1.78-5.38) H 12/24/19 07:50 Lymph # (Auto) 1.38 K/mm3 (1.32-3.57) 12/24/19 07:50 Simpson # (Auto) 0.75 K/mm3 (0.30-0.82) 12/24/19 07:50 Eos # (Auto) 0.10 K/mm3 (0.04-0.54) 12/24/19 07:50 Baso # (Auto) 0.02 K/mm3 (0.01-0.08) 12/24/19 07:50 Manual Slide Review Normal smear 12/23/19 11:33 PT 11.3 SECONDS (9.7-12.0) 12/23/19 14:59 INR 1.04 12/23/19 14:59 APTT 27 SECONDS (22-31) 12/23/19 14:59 Sodium 144 mEq/L (136-145) 12/24/19 05:18 Potassium 3.8 mEq/L (3.5-5.1) 12/24/19 05:18 Chloride 109 mEq/L (98-107) H 12/24/19 05:18 Carbon Dioxide 20 mEq/L (21-32) L 12/24/19 05:18 Anion Gap 18.8 (5-15) H 12/24/19 05:18 BUN 36 mg/dL (7-18) H 12/24/19 05:18 Creatinine 1.4 mg/dL (0.7-1.3) H 12/24/19 05:18 Est Cr Clr Drug Dosing 51.54 mL/min 12/24/19 05:18 Estimated GFR (MDRD) 50 mL/min (>60) 12/24/19 05:18 BUN/Creatinine Ratio 25.7 (14-18) H 12/24/19 05:18 Glucose 104 mg/dL (83-115) 12/24/19 05:18 Calcium 9.0 mg/dL (8.5-10.1) D 12/24/19 05:18 Phosphorus 3.7 mg/dL (2.6-4.7) 12/24/19 05:18 Magnesium 1.5 mg/dl (1.8-2.4) L 12/24/19 05:18 Total Bilirubin 0.5 mg/dL (0.2-1.0) 12/23/19 11:33 AST 26 U/L (15-37) 12/23/19 11:33 ALT 33 U/L (16-63) 12/23/19 11:33 Alkaline Phosphatase 86 U/L (46-116) 12/23/19 11:33 C-Reactive Protein 0.4 mg/dL (<1.0) 12/23/19 11:33 Total Protein 7.5 g/dl (6.4-8.2) 12/23/19 11:33 Albumin 4.1 g/dl (3.4-5.0) 12/23/19 11:33 Globulin 3.4 gm/dL 12/23/19 11:33 Albumin/Globulin Ratio 1.2 (1-2) 12/23/19 11:33 Lipase 213 U/L (73-393) 12/23/19 11:33 Urine Color Dark yellow (Yellow) 12/23/19 12:55 Urine Appearance Clear (Clear) 12/23/19 12:55 Urine pH 5.5 (5.0-8.0) 12/23/19 12:55 Ur Specific [place] > or = 1.030 (1.005-1.030) 12/23/19 12:55 Urine Protein 2+ (Negative) H 12/23/19 12:55 Urine Glucose (UA) Negative (Negative) 12/23/19 12:55 Urine Ketones Trace (Negative) H 12/23/19 12:55 Urine Occult Blood Negative (Negative) 12/23/19 12:55 Urine Nitrite Negative (Negative) 12/23/19 12:55 Urine Bilirubin 1+ (Negative) H 12/23/19 12:55 Urine Urobilinogen 0.2 (0.2-1.0) 12/23/19 12:55 Ur Leukocyte Esterase Negative (Negative) 12/23/19 12:55 U Hyaline Cast (Auto) 5-10 /lpf (0-5) H 12/23/19 12:55 Urine RBC Not seen /hpf (0-5) 12/23/19 12:55 Urine WBC 0-5 /hpf (0-5) 12/23/19 12:55 Ur Epithelial Cells Not seen /hpf (0-5) 12/23/19 12:55 Urine Bacteria Few /hpf (FEW) 12/23/19 12:55 Urine Mucus Few /hpf (FEW) 12/23/19 12:55 SARS-CoV-2 RNA (RT-PCR) Negative (NEGATIVE) 12/23/19 12:31 All labs reviewed and noted and within acceptable ranges to proceed with scheduled procedure. - Imaging/EKG Impressions: History of suspicious reversible ischemia with stress test with decreased EF= 42% in 2015 - Allergies Allergies/Adverse Reactions: Allergies Allergy/AdvReac Type Severity Reaction Status Date / Time pravastatin Allergy Hives Verified 12/23/19 11:04 - Anesthesia Plan Pre-Op Medication Ordered: Beta Nino Beta Nino: Labetalol Med Last Dose Date: 12/24/19 Med Last Dose Time: 09:00 - Acknowledgements Anesthesia Type Planned: MAC Pt an Appropriate Candidate for the Planned Anesthesia: Yes Alternatives and Risks of Anesthesia Discussed w Pt/Guardian: Yes Pt/Guardian Understands and Agrees with Anesthesia Plan: Yes PreAnesthesia Questionnaire HEENT History: Reports: Impaired Vision Cardiovascular History: Reports: Angina, CAD, High Cholesterol, Hypertension, Stents Respiratory History: Reports: SOB, Other (See Below) Other Respiratory History: seasonal allergies Gastrointestinal History: Reports: Diverticulosis, GERD Genitourinary History: Reports: Prostate Disorder Musculoskeletal History: Reports: Arthritis, Back Pain, Chronic, Other (See Below) Other Musculoskeletal History: burstitis in left shoulder Neurological History: Reports: Migraines Oncologic (Cancer) History: Reports: Other (See Below) Other Oncologic History: right eye Dermatologic History: Reports: Other (See Below) Other Dermatologic History: chorid melanoma right eye - Past Surgical History Cardiovascular Surgical History: Reports: Coronary Artery Stent GI Surgical History: Reports: Hernia, Inguinal, Other (See Below) Other GI Surgeries/Procedures: GI bleed Dermatological Surgical History: Reports: Other (See Below) - SUBSTANCE USE Smoking Status *Q: Never Smoker Second Hand Smoke Exposure: No Recreational Drug Use History: No - HOME MEDS Home Medications: Home Meds Allopurinol [Zyloprim] 300 mg PO DAILY 09/26/15 [History] Fexofenadine [Marleni] 180 mg PO DAILY PRN 09/26/15 [History] Lisinopril/Hydrochlorothiazide [Lisinopril-Hctz 20-25 mg Tab] 1 tab PO DAILY 09/26/15 [History] Naproxen Sodium [Aleve] 440 mg PO BID PRN 09/26/15 [History] Omeprazole [Prilosec] 20 mg PO DAILY 09/26/15 [History] Verepamil 240 mg PO DAILY 09/26/15 [History] Aspirin [Halfprin] 81 mg PO DAILY #30 09/28/15 [Rx] Labetalol [Normodyne] 100 mg PO BID 12/23/19 [History] Rosuvastatin Calcium [Crestor] 40 mg PO DAILY 12/23/19 [History] - CURRENT (IN HOUSE) MEDS Current Meds: Current Medications Allopurinol (Zyloprim) 300 mg PO DAILY EDISON Lactated Ringer's (Ringers, Lactated) 1,000 mls @ 150 mls/hr IV ASDIRECTED EDISON Last Admin: 12/24/19 05:43 Dose: 100 mls/hr Documented by: Labetalol HCl (Normodyne) 100 mg PO BID EDISON Last Admin: 12/23/19 21:29 Dose: 100 mg Documented by: Pantoprazole Sodium (Protonix) 40 mg PO DAILY EDISON Sodium Chloride (Saline Flush) 10 ml FLUSH ASDIRECTED PRN PRN Reason: Keep Vein Open Last Admin: 12/23/19 11:27 Dose: 10 ml Documented by: Verapamil HCl (Verelan) 240 mg PO DAILY EDISON Discontinued Medications Magnesium Sulfate 2 gm/ Premix 50 mls @ 25 mls/hr IV ONETIME ONE Stop: 12/23/19 14:54 Last Admin: 12/23/19 13:09 Dose: 25 mls/hr Documented by: Polyethylene Glycol/Electrolytes (Golytely) 4,000 ml PO ONETIME ONE Stop: 12/23/19 18:27 Last Admin: 12/23/19 19:09 Dose: 4,000 ml Documented by:
[2019-12-24] MEDS ORDERED: Verapamil 120 MG Cap.ER PO SCH (09:00)
[2019-12-24] MEDS ORDERED: Allopurinol 300 MG Tab PO SCH (09:00)
[2019-12-24] MEDS ORDERED: Pantoprazole 40 MG Tab.CR PO SCH (09:00)
[2019-12-24] MEDS: Labetalol 100 MG Tab PO SCH (09:16)
[2019-12-24] MEDS ORDERED: Magnesium Sulfate/Water 4 GM in Premix Bag 1 BAG IV ONE (09:33)
[2019-12-24] MEDS ORDERED: Propofol 200 MG/20 ML SDV ONE ×2 (09:56→12:02)
[2019-12-24] MEDS ORDERED: Lidocaine 1% 4 ML ONE (09:56)
--- NOTE | 2019-12-24 12:38 | PCM.PRNOTE ---
- Free Text/Narrative Note: Date: 12/24/2019 Procedure: diagnostic colonoscopy Endoscopist: Cole Leone MD Findings: minimal bloody fluid in rectum, not extending proximal to the sigmoid. Extensive diverticular disease, with floating blood clot seen within a diverticulum in the sigmoid. No active hemorrhage, no other pathology noted. Detailed Report: The patient was taken to the endoscopy suite and placed in left lateral decubitus position. Time out was performed and monitored anesthesia care provided. The colonoscope was inserted anally and advanced to the cecum. The prep was excellent. The ileocecal valve was visualized. There was diverticular disease throughout the colon but most concentrated in the sigmoid. No polyps were identified. There was blood tinged fluid within the sigmoid and rectum, and a small blood clot was seen in the sigmoid. No active hemorrhage was identified. No significant hemorrhoids. Air was evacuated and the scope removed. The patient tolerated the procedure well. Cole Leone MD General Surgery
--- NOTE | 2019-12-24 12:39 | PCM48HPAN ---
Post Anesthesia Note - EVALUATION WITHIN 48HRS OF ANESTHETIC Vital Signs in Normal Range: Yes Patient Participated in Evaluation: Yes Respiratory Function Stable: Yes Airway Patent: Yes Cardiovascular Function Stable: Yes Hydration Status Stable: Yes Pain Control Satisfactory: Yes Nausea and Vomiting Control Satisfactory: Yes Mental Status Recovered: Yes Vital Signs: Last Vital Signs Temp 36.4 C 12/24/19 07:44 Pulse 80 12/24/19 09:16 Resp 19 12/24/19 07:44 BP 152/121 H 12/24/19 09:16 Pulse Ox 99 12/24/19 07:44 Orthostatic Blood Pressure [ 130/106 Standing] Orthostatic Blood Pressure [ 133/61 Sitting] Orthostatic Blood Pressure [ 136/65 Supine]
--- NOTE | 2019-12-24 13:55 | PCM.DCSUM1 ---
Discharge Summary - Hospital Course HPI Initial Comments: Gagandeep Brewer is a 69-year-old male who presents to ED on 12/23/2019 after being sent here by his primary care provider, Dr. Ansari, for a GI bleed. Reports has had bright red blood per rectum which started yesterday evening. Reports has had 8-10 bowel movements since the start. He had several bright red bowel movements in the ED as well. Initially states there was formed stool with red streaks but this eventually became gross blood. Reports prior GI bleed in 2015 which resolved without intervention. He states at that time he had had a colonoscopy several weeks prior and nothing was found. He does have a history of diverticulosis and they believe that was the cause of the bleed. He has had no issues since this episode. At that time he was taking Plavix, however this has been discontinued. He takes aspirin daily, 81 mg, and an occasional NSAID. Last colonoscopy was in 2013. Denies any abdominal pain or current infectious symptoms. In the ED temp was 96.8. Pulse 64. Respirations 18. Blood pressure was 103/62. Pulse ox was 94. CBC is grossly unremarkable with a hemoglobin of 13.2 and platelets of 215. Magnesium is low at 1.5 and he is given 2 g in the ED. Creatinine is slightly elevated at 1.6 with a GFR 43. Anion gap is slightly high at 16.6. Lipase is 213. Otherwise electrolytes look good. He started on lactated Ringer's at 150 mils an hour. And this was decreased down to 100 mils per hour before he went to the floor. Stool was heme positive in the ED. COVID-19 screen was negative. He carries a history of angina, CAD, HLD, hypertension, prior stent placement, diverticulosis, GERD, prostate disorder, chronic back pain, arthritis, migraines, choroid melanoma of the right eye, prior GI bleeds. He was never smoker. His PCP is Dr. Ansari. He subsequently admitted to the medical floor for management of his GI bleed. Diagnosis: Stroke: No - Discharge Data Discharge Date: 12/24/19 (Admit date: 12/23/19) Discharge Disposition: Home, Self-Care 01 Condition: Good - Referral to Home Health Primary Care Physician: Shady Ansari MD - Discharge Diagnosis/Problem(s) (1) Lower GI bleed SNOMED Code(s): 75321626 ICD Code: K92.2 - GASTROINTESTINAL HEMORRHAGE, UNSPECIFIED Status: Acute Priority: High Current Visit: Yes (2) History of GI bleed SNOMED Code(s): 466733599 ICD Code: Z87.19 - PERSONAL HISTORY OF OTHER DISEASES OF THE DIGESTIVE SYSTEM Status: Chronic Priority: Medium Current Visit: Yes (3) Angina pectoris SNOMED Code(s): 166236030 ICD Code: I20.9 - ANGINA PECTORIS, UNSPECIFIED Status: Chronic Priority: Medium Current Visit: No (4) HLD (hyperlipidemia) SNOMED Code(s): 51798463 ICD Code: E78.5 - HYPERLIPIDEMIA, UNSPECIFIED Status: Chronic Priority: Low Current Visit: No Qualifiers: Hyperlipidemia type: unspecified Qualified Code(s): E78.5 - Hyperlipidemia, unspecified (5) CAD (coronary artery disease) SNOMED Code(s): 37246031 ICD Code: I25.10 - ATHSCL HEART DISEASE OF [place] CORONARY ARTERY W/O ANG PCTRS Status: Chronic Priority: Medium Current Visit: No Qualifiers: Coronary Disease-Associated Artery/Lesion type: unspecified vessel or lesion type [place] vs. transplanted heart: [place] heart Associated angina: with stable angina Qualified Code(s): I25.118 - Atherosclerotic heart disease of [place] coronary artery with other forms of angina pectoris (6) HTN (hypertension) SNOMED Code(s): 70020266 ICD Code: I10 - ESSENTIAL (PRIMARY) HYPERTENSION Status: Chronic Priority: Medium Current Visit: No Qualifiers: Hypertension type: unspecified Qualified Code(s): I10 - Essential (primary) hypertension (7) History of heart artery stent SNOMED Code(s): 362003254, 106704409 ICD Code: Z95.5 - PRESENCE OF CORONARY ANGIOPLASTY IMPLANT AND GRAFT Status: Chronic Priority: Medium Current Visit: Yes (8) Diverticulosis SNOMED Code(s): 701003347 ICD Code: K57.90 - DVRTCLOS OF INTEST, PART UNSP, W/O PERF OR ABSCESS W/O BLEED Status: Chronic Priority: High Current Visit: Yes (9) GERD (gastroesophageal reflux disease) SNOMED Code(s): 008501953 ICD Code: K21.9 - GASTRO-ESOPHAGEAL REFLUX DISEASE WITHOUT ESOPHAGITIS Status: Chronic Priority: Medium Current Visit: Yes Qualifiers: Esophagitis presence: esophagitis presence not specified Qualified Code(s): K21.9 - Gastro-esophageal reflux disease without esophagitis (10) Prostate disorder SNOMED Code(s): 13151167 ICD Code: N42.9 - DISORDER OF PROSTATE, UNSPECIFIED Status: Chronic Priority: Low Current Visit: No (11) Arthritis SNOMED Code(s): 4123273 ICD Code: M19.90 - UNSPECIFIED OSTEOARTHRITIS, UNSPECIFIED SITE Status: Chronic Priority: Low Current Visit: No (12) Chronic back pain SNOMED Code(s): 369508935 ICD Code: M54.9 - DORSALGIA, UNSPECIFIED; G89.29 - OTHER CHRONIC PAIN Status: Chronic Priority: Low Current Visit: No Qualifiers: Back pain location: back pain in unspecified location Back pain laterality: unspecified Qualified Code(s): M54.9 - Dorsalgia, unspecified; G89.29 - Other chronic pain (13) Migraines SNOMED Code(s): 17675153 ICD Code: G43.909 - MIGRAINE, UNSP, NOT INTRACTABLE, WITHOUT STATUS MIGRAINOS Status: Chronic Priority: Low Current Visit: No Qualifiers: Migraine type: unspecified Status migrainosus presence: without status migrainosus Intractability: not intractable Qualified Code(s): G43.909 - Migraine, unspecified, not intractable, without status migrainosus (14) Choroid melanoma of right eye SNOMED Code(s): 0979187852044812 ICD Code: C69.31 - MALIGNANT NEOPLASM OF RIGHT CHOROID Status: Chronic Priority: Low Current Visit: No (15) Hypomagnesemia SNOMED Code(s): 402923199 ICD Code: E83.42 - HYPOMAGNESEMIA Status: Acute Priority: High Current Visit: Yes - Patient Summary/Data Consults: Consultations 12/23/19 15:01 Consult to Physician [CONS] Routine Consult to Spiritual Care [CONS] Routine OT Evaluation and Treatment [CONS] Routine PT Evaluation and Treatment [CONS] Routine Labs Pending at D/C: None Recommended Follow-up Testing/Procedures: Follow-up with PCP, Dr. Ansari, within 5-7 days of discharge, sooner if needed. -Recommend re-check CBC and magnesium at that time. Hospital Course: Gagandeep was admitted to the medical floor due to a GI bleed. Once on the floor hemoglobin was monitored and did continue to drop. General surgeon, Dr. Akin caro, was consulted and did see the patient. Patient's prior colonoscopy had been around 2013. As noted in H&P he had been hospitalized in 2016 for prior GI bleed, which was self-limiting. Gagandeep was started on a bowel prep. He did continue to have multiple bright red grossly bloody bowel movements. Continued to deny any abdominal pain or infectious symptoms. Hemoglobin trended from 13.3-->10.7-->10.1-->9.6. He was taken for colonoscopy on 12/24/[address] Leone. Colonoscopy revealed multiple diverticuli throughout colon. This was most prominent in the sigmoid region. There is no signs of active bleeding however there was a blood clot noted in the sigmoid colon. There was no hemorrhoids noted. There were no polyps. Bowel prep was noted to be excellent. Patient tolerated the procedure well and was brought back to the floor. Postprocedure he continued to have no complaints. We discussed follow-up. Recommend follow-up with PCP within 5 to 7 days of discharge, sooner if needed. As per Dr. Leone, no need to follow-up with general surgery unless bleeding becomes more frequent or returns. As discussed, should he notice significant bleeding or pain he should return to the emergency room immediately. Recommend recheck CBC and magnesium at his PCP appointment, as his magnesium was low here and was supplemented. He reports a history of hypomagnesemia and states he has been on supplementation in the past. Patient had been on aspirin, 81 mg and as needed NSAIDs prior to surgery. Aspirin will be held until he discusses when to resume it with his primary care provider. He was advised to be very cautious with NSAIDs as they can promote bleeding. All other home medications were continued. PT did evaluate the patient and had no concerns. He was discharged home today. He was instructed to follow-up with his primary care provider or return to the emergency room should symptoms return or worsen. - Patient Instructions Diet: Heart Healthy Diet Activity: As Tolerated Showering/Bathing: May Shower Notify Provider of: Fever, Increased Pain, Nausea and/or Vomiting Other/Special Instructions: Follow-up with primary care provider within 5-7 days of discharge, sooner if needed. Recommend re-check CBC and magnesium (blood draw) at that appointment. You will likely notice a little bit more blood at your colon cleans out whatever is left from your bleed. If you notice significant bleeding or pain return to the Emergency Department. As we discussed, this bleed was likely from your diverticula. If this continues to be an option you may follow-up with a general surgeon to explore surgical options. Otherwise there is no need to follow-up with a general surgeon. You saw Dr. Leone, who is from our clinic here and may follow-up with him or pick someone elese if needed. Discontinue your daily aspirin and avoid NSAIDs if possible as these promote bleeding. You may discuss with Dr. Ansari when to restart your aspirin. Should symptoms return or worsen, contact your primary care provider or return to the Emergency Department. - Discharge Plan *PRESCRIPTION DRUG MONITORING PROGRAM REVIEWED*: No *COPY OF PRESCRIPTION DRUG MONITORING REPORT IN PATIENT GRACIELA: No Prescriptions/Med Rec: Magnesium Oxide [Magnesium] 400 mg PO DAILY #5 tablet Home Medications: Home Meds Allopurinol [Zyloprim] 300 mg PO DAILY 09/26/15 [History] Fexofenadine [Marleni] 180 mg PO DAILY PRN 09/26/15 [History] Lisinopril/Hydrochlorothiazide [Lisinopril-Hctz 20-25 mg Tab] 1 tab PO DAILY 09/26/15 [History] Omeprazole [Prilosec] 20 mg PO DAILY 09/26/15 [History] Verepamil 240 mg PO DAILY 09/26/15 [History] Labetalol [Normodyne] 100 mg PO BID 12/23/19 [History] Rosuvastatin Calcium [Crestor] 40 mg PO DAILY 12/23/19 [History] Magnesium Oxide [Magnesium] 400 mg PO DAILY #5 tablet 12/24/19 [Rx] Oxygen Therapy Mode: Room Air Patient Handouts: Colonoscopy, Adult, [id number], Colonoscopy, Adult, Care After, [id number], Hypomagnesemia, Diverticulosis, Lower Gastrointestinal Bleeding Forms: ED Department Discharge Referrals: Shady Ansari MD [Primary Care Provider] - - Discharge Summary/Plan Comment DC Time >30 min.: Yes (45 mins ) - General Info Date of Service: 12/24/19 Admission Dx/Problem (Free Text: Admission Diagnosis/Problem Admission Diagnosis/Problem GI bleed not requiring more than 4 units of blood in 24 hours, ICU, or surgery Functional Status: Reports: Pain Controlled, Tolerating Diet, Ambulating, Urinating. Denies: New Symptoms - Review of Systems General: Reports: No Symptoms. Denies: Fever, Weakness, Fatigue, Malaise, Chills HEENT: Reports: No Symptoms. Denies: Headaches, Sore Throat Pulmonary: Reports: No Symptoms. Denies: Shortness of Breath, Cough, Sputum, Wheezing Cardiovascular: Reports: No Symptoms. Denies: Chest Pain, Palpitations, Dyspnea on Exertion Gastrointestinal: Reports: Flatus. Denies: Abdominal Pain, Constipation, Diarrhea, Hematochezia, Melena, Nausea, Vomiting Genitourinary: Reports: No Symptoms. Denies: Pain Musculoskeletal: Reports: Shoulder Pain (left - chronic ) Skin: Reports: No Symptoms. Denies: Cyanosis Neurological: Reports: No Symptoms. Denies: Confusion, Difficulty Walking, Weakness, Gait Disturbance Psychiatric: Reports: No Symptoms - Patient Data Vitals - Most Recent: Last Vital Signs Temp 98.2 F 12/24/19 12:33 Pulse 71 12/24/19 12:33 Resp 14 12/24/19 12:33 BP 117/94 H 12/24/19 12:33 Pulse Ox 90 L 12/24/19 12:33 Orthostatic Blood Pressure [ 130/106 Standing] Orthostatic Blood Pressure [ 133/61 Sitting] Orthostatic Blood Pressure [ 136/65 Supine] Weight - Most Recent: 221 lb 12.8 oz I&O - Last 24 hours: Intake & Output 12/23/19 12/24/19 12/24/19 22:59 06:59 14:59 Intake Total 1250 1237 Output Total 300 200 Balance 950 1037 Lab Results - Last 24 hrs: Laboratory Results - last 24 hr 12/23/19 12/23/19 12/23/19 Range/Units 14:59 17:56 23:38 WBC (4.23-9.07) K/mm3 RBC (4.63-6.08) M/mm3 Hgb 10.7 L D 10.1 L (13.7-17.5) gm/dl Hct 34.0 L 31.7 L (40.1-51.0) % MCV (79.0-92.2) fl MCH (25.7-32.2) pg MCHC (32.2-35.5) g/dl RDW Std Deviation (35.1-43.9) fL Plt Count (163-337) K/mm3 MPV (9.4-12.3) fl Neut % (Auto) (34.0-67.9) % Lymph % (Auto) (21.8-53.1) % [place] % (Auto) (5.3-12.2) % Eos % (Auto) (0.8-7.0) Baso % (Auto) (0.1-1.2) % Neut # (Auto) (1.78-5.38) K/mm3 Lymph # (Auto) (1.32-3.57) K/mm3 [place] # (Auto) (0.30-0.82) K/mm3 Eos # (Auto) (0.04-0.54) K/mm3 Baso # (Auto) (0.01-0.08) K/mm3 PT 11.3 (9.7-12.0) SECONDS INR 1.04 APTT 27 (22-31) SECONDS Sodium (136-145) mEq/L Potassium (3.5-5.1) mEq/L Chloride (98-107) mEq/L Carbon Dioxide (21-32) mEq/L Anion Gap (5-15) BUN (7-18) mg/dL Creatinine (0.7-1.3) mg/dL Est Cr Clr Drug Dosing mL/min Estimated GFR (MDRD) (>60) mL/min BUN/Creatinine Ratio (14-18) Glucose (83-115) mg/dL Calcium (8.5-10.1) mg/dL Phosphorus (2.6-4.7) mg/dL Magnesium (1.8-2.4) mg/dl 12/24/19 12/24/19 Range/Units 05:18 07:50 WBC 10.46 H (4.23-9.07) K/mm3 RBC 3.21 L (4.63-6.08) M/mm3 Hgb 9.6 L (13.7-17.5) gm/dl Hct 30.2 L (40.1-51.0) % MCV 94.1 H (79.0-92.2) fl MCH 29.9 (25.7-32.2) pg MCHC 31.8 L (32.2-35.5) g/dl RDW Std Deviation 47.8 H (35.1-43.9) fL Plt Count 151 L (163-337) K/mm3 MPV 10.7 (9.4-12.3) fl Neut % (Auto) 78.1 H (34.0-67.9) % Lymph % (Auto) 13.2 L (21.8-53.1) % [place] % (Auto) 7.2 (5.3-12.2) % Eos % (Auto) 1.0 (0.8-7.0) Baso % (Auto) 0.2 (0.1-1.2) % Neut # (Auto) 8.18 H (1.78-5.38) K/mm3 Lymph # (Auto) 1.38 (1.32-3.57) K/mm3 [place] # (Auto) 0.75 (0.30-0.82) K/mm3 Eos # (Auto) 0.10 (0.04-0.54) K/mm3 Baso # (Auto) 0.02 (0.01-0.08) K/mm3 PT (9.7-12.0) SECONDS INR APTT (22-31) SECONDS Sodium 144 (136-145) mEq/L Potassium 3.8 (3.5-5.1) mEq/L Chloride 109 H (98-107) mEq/L Carbon Dioxide 20 L (21-32) mEq/L Anion Gap 18.8 H (5-15) BUN 36 H (7-18) mg/dL Creatinine 1.4 H (0.7-1.3) mg/dL Est Cr Clr Drug Dosing 51.54 mL/min Estimated GFR (MDRD) 50 (>60) mL/min BUN/Creatinine Ratio 25.7 H (14-18) Glucose 104 (83-115) mg/dL Calcium 9.0 D (8.5-10.1) mg/dL Phosphorus 3.7 (2.6-4.7) mg/dL Magnesium 1.5 L (1.8-2.4) mg/dl Med Orders - Current: Current Medications Allopurinol (Zyloprim) 300 mg PO DAILY [facility] Labetalol HCl (Normodyne) 100 mg PO BID [facility] Last Admin: 12/24/19 09:16 Dose: 100 mg Documented by: Pantoprazole Sodium (Protonix) 40 mg PO DAILY [facility] Sodium Chloride (Saline Flush) 10 ml FLUSH ASDIRECTED PRN PRN Reason: Keep Vein Open Last Admin: 12/23/19 11:27 Dose: 10 ml Documented by: Verapamil HCl (Verelan) 240 mg PO DAILY [facility] Discontinued Medications Lactated Ringer's (Ringers, Lactated) 1,000 mls @ 150 mls/hr IV ASDIRECTED EDISON Last Admin: 12/24/19 05:43 Dose: 100 mls/hr Documented by: Magnesium Sulfate 2 gm/ Premix 50 mls @ 25 mls/hr IV ONETIME ONE Stop: 12/23/19 14:54 Last Admin: 12/23/19 13:09 Dose: 25 mls/hr Documented by: Magnesium Sulfate 4 gm/ Premix 50 mls @ 12.5 mls/hr IV ONETIME ONE Stop: 12/24/19 13:32 Last Admin: 12/24/19 11:22 Dose: 12.5 mls/hr Documented by: Lidocaine HCl (Xylocaine-Mpf 1%) Confirm Administered Dose 4 mls @ as directed .ROUTE .STK-MED ONE Stop: 12/24/19 09:57 Polyethylene Glycol/Electrolytes (Golytely) 4,000 ml PO ONETIME ONE Stop: 12/23/19 18:27 Last Admin: 12/23/19 19:09 Dose: 4,000 ml Documented by: Propofol (Diprivan 20 Ml) Confirm Administered Dose 200 mg .ROUTE .STK-MED ONE Stop: 12/24/19 09:57 Propofol (Diprivan 20 Ml) Confirm Administered Dose 200 mg .ROUTE .STK-MED ONE Stop: 12/24/19 12:03 - Exam Quality Assessment: Reports: DVT Prophylaxis. Denies: Supplemental Oxygen, Urine Catheter General: Reports: Alert, Oriented, Cooperative, No Acute Distress HEENT: Reports: Pupils Equal, Pupils Reactive, Mucous Membr. Moist/[place] Neck: Reports: Supple, Trachea Midline Lungs: Reports: Clear to Auscultation, Normal Respiratory Effort Cardiovascular: Reports: Regular Rate, Regular Rhythm GI/Abdominal Exam: Normal Bowel Sounds, Soft, Non-Tender, No Distention (Male) Exam: Deferred Rectal (Males) Exam: Deferred Back Exam: Reports: Normal Inspection, Full Range of Motion Extremities: Normal Inspection, Normal Range of Motion, Non-Tender, No Pedal Edema Skin: Reports: Warm, Dry, Intact Neurological: Reports: No New Focal Deficit Psy/Mental Status: Reports: Alert, Normal Affect, Normal Mood
[2019-12-24 14:26] VITALS: BP 149/55; PULSE 76
== END 2019-12-24 18:00 | disposition home or self-care (01) | DRG 379 ==
LOC: JD.ED 10:51 → JD.MS 14:18
PROVIDERS: ADMIT Internal Medicine; ATTEND Internal Medicine
PROC: 0DJD8ZZ Inspection of Lower Intestinal Tract, Via Natural or Artificial Opening Endoscopic (ICD-10-PCS; principal; 2019-12-24)
DX: K92.2 Gastrointestinal hemorrhage, unspecified (principal); Z20.828 Contact with and (suspected) exposure to other viral communicable diseases; H54.7 Unspecified visual loss; I25.10 Atherosclerotic heart disease of native coronary artery without angina pectoris; K57.31 Diverticulosis of large intestine without perforation or abscess with bleeding; E78.00 Pure hypercholesterolemia, unspecified; E78.5 Hyperlipidemia, unspecified; I25.118 Atherosclerotic heart disease of native coronary artery with other forms of angina pectoris; I10 Essential (primary) hypertension; K21.9 Gastro-esophageal reflux disease without esophagitis; M19.90 Unspecified osteoarthritis, unspecified site; N42.9 Disorder of prostate, unspecified; G89.29 Other chronic pain; M54.9 Dorsalgia, unspecified; G43.909 Migraine, unspecified, not intractable, without status migrainosus; C69.31 Malignant neoplasm of right choroid; E83.42 Hypomagnesemia; Z88.8 Allergy status to other drugs, medicaments and biological substances; Z95.5 Presence of coronary angioplasty implant and graft; Z79.82 Long term (current) use of aspirin; Z79.899 Other long term (current) drug therapy
CPT/HCPCS: 36415; 80053; 81001; 83690; 83735; 85025; 86140; J3475; J7120; U0002; 80048; 84100; 85014; 85018; 85610; 85730; 96365; 97161-GP; 97165-GO; 99284-25; A9270-GY; J2001; J2704